=== PATIENT | female | born 1965 ===

== ENCOUNTER → 2019-01-24 | Outpatient (CLI) | payer OTHER ==
[~2019-01-24] MED LIST: LIDOCAINE 1% INJ-PF (10 MG/ML) 30 ML SDV ONE
--- NOTE | 2019-01-24 18:06 | WOMENS IMAGING REPORT ---
EXAM DESCRIPTION: U/S BREAST UNILATERAL, COMPL COMPLETED DATE/TIME: 01/24/2019 10:49 am REASON FOR STUDY: R92.8 OTHER ABNORMAL AND INCONCLUSIVE FINDINGS ON DIAGNOSTIC IMAGING OF NELDA R92.8 OTH ABN AND INCONCLUSIVE FINDINGS ON DX IMAGING OF NELDA COMPARISON: Report from mammograms and ultrasound 12/24/2018 Images from ultrasound 12/24/2018 TECHNIQUE: Real-time and static grayscale imaging performed of the right breast targeted to the area of mammographic/sonographic concern. Selected color Doppler images recorded. LIMITATIONS: None. FINDINGS: Patient was scanned by both myself as well as the technologist. The right axilla and enti re right breast was image with ultrasound. The right breast mass identified on outside study 12/24/2018 by ultrasound 11 o'clock position 3 cm f rom the nipple was not identified today. Patient has dense fibroglandular tissue. Findings were dis cussed with Dr. Calvillo. Bilateral breast MRI with contrast is recommended for further evaluation of this finding. Remainder of the right breast and axilla ultrasound demonstrates a 5 mm anechoic simple cyst at the r ight breast laterally 9 to 10 o'clock position. In the right breast periareolar region, a hypoechoic solid rolando 5 mm nodule is present, papilloma versus fibroadenoma. Ultrasound of the right axilla demonstrates no worrisome lymph nodes. Axillary lymph nodes are ident ified with cortical thickness less than 3 mm. IMPRESSION: No suspicious findings detected by ultrasound. BIRAD: 0, requires additional imaging with bilateral breast MRI. RECOMMENDATION: RECOMMENDED FOLLOW-UP: Bilateral breast MRI. Findings discussed with the patient's attending breast surgeon. COMMENT: The [employer] ([employer]) has developed recommendations for screening MRI of the breasts in certain patient populations, to be used in conjunction with mammography. Breast MRI s urveillance may be appropriate for women with more than 20% lifetime risk of developing breast cancer as determined by genetic testing, significant family history of the disease, or history of mantle r adiation for Hodgkins Disease. [employer] Practice Guidelines 2008. TECHNICAL DOCUMENTATION: JOB ID: [id number] [employer]- All Rights Reserved Reading location - IP/workstation name: [email or web address]-
== END ==
LOC: WI 09:42 → EDSTATUS 10:00
PROVIDERS: ATTEND Surgery
DX: R92.8 Other abnormal and inconclusive findings on diagnostic imaging of breast (principal)
CPT/HCPCS: 76641; J3490

== ENCOUNTER → 2019-08-19 | Outpatient (CLI) | payer BC | LOC: WI 11:08 | PROVIDERS: ATTEND Surgery | DX: Z12.31 Encounter for screening mammogram for malignant neoplasm of breast (principal) | CPT/HCPCS: 77063; 77067 ==